=== PATIENT | female | born 1960 | race Caucasian/White ===

== ENCOUNTER → 2023-10-23 11:19 | Outpatient (REF) | payer BC, SELFPAY | LOC: RAD 11:19 | PROVIDERS: ATTENDING PHYSICIAN Nurse Practitioner; FAMILY PHYSICIAN Internal Medicine | DX: J06.9 Acute upper respiratory infection, unspecified (principal) | CPT/HCPCS: 71046 ==

== ENCOUNTER → 2024-01-07 10:59 | Outpatient (REF) | payer BC, SELFPAY | LOC: WDC 10:59 | PROVIDERS: ATTENDING PHYSICIAN Obstetrics & Gynecology; FAMILY PHYSICIAN Nurse Practitioner | DX: Z12.31 Encounter for screening mammogram for malignant neoplasm of breast (principal) | CPT/HCPCS: 77063; 77067 ==